=== PATIENT | female | born 1970 | race Caucasian/White ===

== ENCOUNTER 2017-10-09 11:27 | Day surgery (SDC) | payer OTHER ==
--- NOTE | 2017-10-08 16:51 | RAD REPORT ---
EXAM DESCRIPTION: RAD - Chest Pa And Lat (2 Views) - 10/08/2017 4:43 pm CLINICAL HISTORY: HTN. COMPARISON: None. FINDINGS: The lungs are clear. The heart is normal in size. No displaced fractures. IMPRESSION: No acute or concerning finding suspected.
[2017-10-08 17:21] LABS: Absolute Lymphocytes (CBC) 2.4 K/uL (0.7-4.9); Absolute Monocytes 0.9 K/uL (0.1-1.3); Absolute Neutrophil 7.5 K/uL (1.8-8.0); Basophils % 0.5 % (0-1.3); Eosinophils % 1.6 % (0-4.4); Hematocrit 41.6 % (36.0-45.0); Lymphocytes % 21.8 % (15.3-44.8); MCH 27.9 pg (27.0-35.0); MCV 84.6 fL (80-100); MPV 10.1 fL (7.6-11.3); Monocytes % 8.2 % (3.3-12.3); RBC Red Blood Cell Count 4.92 M/uL (3.86-4.86)
[2017-10-08 17:30] LABS: BUN Blood Urea Nitrogen 16 mg/dL (6-20); Bicarbonate 29 mEq/L (21-31); Glucose Level 90 mg/dL (65-120); Potassium 3.9 mEq/L (3.6-5.0); Sodium Level 139 mEq/L (135-145)
--- NOTE | 2017-10-08 22:50 | EKG ---
Test Date: 2017-10-08 Test Time: 16:32:34 Waist Pleater: GLADIS MEASUREMENT RESULTS: Intervals: Rate: 50 CO: 152 QRSD: 88 QT: 436 QTc: 397 [place]: P: -2 CO: 152 QRS: 1 T: 21 INTERPRETIVE STATEMENTS: Sinus bradycardia Otherwise normal ECG Compared to ECG 06/06/2008 03:43:26 Sinus rhythm no longer present Electronically Signed On 10-08-17 22:50:20 CDT by Otto Harley
[2017-10-09] MEDS ORDERED: Ringers Lactate 1,000 ML IV ONE (11:31)
[2017-10-09] MEDS ORDERED: PROPOFOL 200 MG/20 ML VIAL IV ONE (11:50)
[2017-10-09] MEDS ORDERED: MIDAZOLAM HCL 2 MG/2 ML INJ ONE (11:50)
[2017-10-09] MEDS ORDERED: FENTANYL CITR 100 MCG/2 ML ONE (11:50)
[2017-10-09] MEDS ORDERED: CEFAZOLIN/SWI 1gm 1 GM/10 ML SYR ONE (11:53)
[2017-10-09] MEDS ORDERED: KETOROLAC 30 MG/ML INJ ONE (12:30)
--- NOTE | 2017-10-09 12:37 | P.BOP ---
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
[2017-10-09] MEDS ORDERED: ONDANSETRON 4 MG/2 ML VIAL ONE (12:44)
[2017-10-09] MEDS ORDERED: CODEINE 30MG/APAP 300MG TAB ONE (14:28)
--- NOTE | 2017-10-10 00:04 | DS ---
Date of Discharge: 10/09/2017 Diagnoses: Right breast mass with cellulitis and abscess. Procedure: Right breast lumpectomy. Disposition: Home. Discharge Instructions: Wet-to-dry dressing. Normal saline daily and may take a showers with dressi ngs off. Follow up in my office in 1 week. Medications: Includes Cipro 500 mg p.o. q.12, normal saline daily and Tylenol No. 3 q.4 hours p.r.n. pain. ADALBERTO/LUIS Voice ID: [id number] Report ID: [id number]
--- NOTE | 2017-10-10 00:04 | OP ---
Date of Procedure: 10/09/2017 Surgeon: Marko Solo MD Director Of Institutional Sales: Yarelis Rush. Postoperative Diagnosis: Right breast mass with cellulitis and abscess. Postoperative Diagnosis: Right breast mass with cellulitis and abscess. Procedure: Right breast lumpectomy. Specimen: Mass with culture of the abscess. Findings: Mass with abscess. Anesthesia: General plus local. Indications: This is a case of a 46-year-old patient, with a recurrent mass in the right breast geraldine on with erythema, purulent discharge. This is on the inner side of her breast on the right side. Th is time, once again, it was getting worse with some redness of the skin too. She wants that mass rem nataliia. The benefits, alternatives, and risks of excisional biopsy of the mass fully explained to the patient, which include but are not limited to infection, bleeding, damage to adjacent structures, ane sthesia complication, GA, and even . She also understands this lumpectomy will serve as a biops y to rule out breast cancer. Cultures most likely will be sent. She understands the importance of a lso antibiotics. She understood, signed a consent. Description Of Procedure: The patient was brought to the operating room, placed in supine position. Anesthesia was done without complication. The right breast was prepped and draped in the sterile fa shion. A time-out was called. The mass was previously marked by me and the patient in the holding r oom. An incision was made. Immediately, we obtained some pus surrounding the area deep to the mass. This was cultured. After that, we proceeded to remove the lump, a new lumpectomy of the breast. T hat come with some breast tissue attached to it. Muscle does not seem to be involved. The area was irrigated. Hemostasis was obtained. Since this area was infected, we are going to let that to close by secondary intention. Local anesthetic was applied after irrigation and hemostasis. The patient tolerated the procedure well. The patient was sent to recovery room in stable condition. ADALBERTO/LUIS Voice ID: [id number] Report ID: [id number]
== END 2017-10-09 15:25 | disposition home or self-care (01) ==
LOC: OR 11:27
PROVIDERS: ATTEND Surgery
PROC: 0HBT0ZZ Excision of Right Breast, Open Approach (ICD-10-PCS; principal; 2017-10-09 12:30)
DX: N63.0 Unspecified lump in unspecified breast (principal); N61.1 Abscess of the breast and nipple; I10 Essential (primary) hypertension; K21.9 Gastro-esophageal reflux disease without esophagitis
CPT/HCPCS: 36415; 71046; 80048; 84703; 85025; 87070; 87075; 87077; 87186; 87205; 88304; 88305; 93005; J0690; J2250; J2405; J3010

== ENCOUNTER 2018-01-22 10:26 | Day surgery (SDC) | payer OTHER ==
[2018-01-16 11:47] LABS: Urine Appearance CLEAR; Urine Bilirubin NEGATIVE (NEG); Urine Blood NEGATIVE (NEG); Urine Color YELLOW; Urine Glucose NEGATIVE (NEG); Urine Protein NEGATIVE (NEG); Urine Urobilinogen 0.2 mg/dL (0.2-1.0)
[2018-01-16 11:49] LABS: Urine Microscopic Reflex ORDER UMIC
[2018-01-16 11:50] LABS: Absolute Lymphocytes (CBC) 2.2 K/uL (0.7-4.9); Absolute Monocytes 0.8 K/uL (0.1-1.3); Absolute Neutrophil 5.5 K/uL (1.8-8.0); Eosinophils % 1.4 % (0-4.4); Hematocrit 42.6 % (36.0-45.0); Lymphocytes % 25.5 % (15.3-44.8); MCH 28.7 pg (27.0-35.0); MCV 86.3 fL (80-100); MPV 10.5 fL (7.6-11.3); Monocytes % 8.9 % (3.3-12.3); RBC Red Blood Cell Count 4.94 M/uL (3.86-4.86)
[2018-01-16 11:57] LABS: Potassium 3.6 mmol/L (3.5-5.1)
[2018-01-16 12:05] LABS: Urine Bacteria <20 /HPF (<20); Urine Culture Reflex Order REFLEXED; Urine Mucus 1+ /HPF (NONE SEEN); Urine RBC <5 /HPF (NONE SEEN)
--- OUTSIDE RECORDS SUMMARY | 2018-01-22 10:28 | XMS REPORT | Summary of Care ---
:1970 Author Organization [facility] Outpatient Imaging [facility] Address [address] [place] [address]- Encounter HQ Kira_olayinka(FIN) [id number] Date(s): 01/10/16 - 01/10/16 [facility] Outpatient Imaging - [facility] [address] [place], [place] [phone] Discharge Disposition: Home or Self Care Attending Physician: Carla Wolf MD Vital Signs No data available for this section Problem List No data available for this section Allergies, Adverse Reactions, Alerts No data available for this section Medications No data available for this section Results No data available for this section Immunizations No data available for this section Procedures No data available for this section Social History No data available for this section Assessment and Plan No data available for this section
--- OUTSIDE RECORDS SUMMARY | 2018-01-22 10:28 | XMS REPORT | Continuity of Care Document ---
:1970 Author Organization Interface Problems Problem Status Onset Classification Date Comments Source Date Reported N63 - Active [facility] UNSPECIFIED [address] [place] LUMP IN BREAST Medications Medication Details Route Status Patient Ordering Order Source Instructions Provider Date Allergies, Adverse Reactions, Alerts Substance Category Reaction Severity Reaction Status Date Comments Source type Reported Immunizations Immunization Date Given Site Status Last Updated Comments Source Results Order Results Value Reference Date Interpretation Comments Source Name Range Breast Breast - BREAST MAMMO SCRN SAMMI INCL CAD MA 02/11 - [facility] Mammo Mammo /2016 - Francis Scrn SAMMI Scrn SAMMI BILATERAL DIGITAL SCREENING MAMMOGRAM WITH CAD: 02/11/2017 incl CAD incl CAD MA MA CLINICAL: /Screening Family history of breast cancer includes: Paternal aunt. Read by: Napoleon Jules MD Dictated Date/time: 02/12/17 08:24 Electronically Signed by: Napoleon Jules MD 02/12/17 08:24 FINAL REPORT Current study was evaluated with a Computer Aided Detection (CAD) system. Comparison is made to exam dated: 02/12/2016 mammogram - [facility]. There are scattered fibroglandular densities in both breasts. There are benign calcifications in both breasts. There also are benign scattered densities in both breasts. No significant masses, calcifications, or other findings are seen in either breast. There has been no significant interval change. IMPRESSION: BENIGN There is no mammographic evidence of malignancy. A 1 year screening mammogram is recommended. Napoleon Jules M.D. bf/penrad:02/12/2017 08:24:01 Cost Estimating Engineer: Samantha Rodriguez, [facility] This exam was dictated and interpreted by [id number] for [facility]. letter sent: Normal exam Mammogram BI-RADS: 2 Benign Digital Digital - DIGITAL MAMMO DX SAMMI MA 02/11 - [facility] Mammo DX Mammo DX /2015 - Francis Sammi MA Sammi MA BILATERAL DIGITAL DIAGNOSTIC MAMMOGRAM WITH CAD: 02/12/2016 CLINICAL: HISTORY: 45 yo female with history of palpable area of concern in the RIGHT breast which was evaluated with ultrasound on 01/09/16 showed only fatty lobules and a Shantanu's ligament prese Read by: Melanie Rodriguez MD nts for further imaging with mammography. Bilateral reduction mammoplasties, 1990. No prior breast biopsies. No family history of breast cancer. Dictated Date/time: 02/16/16 14:14 Electronically Signed by: Melanie Rodriguez MD 02/16/16 14:14 FINAL REPORT Current study was evaluated with a Computer Aided Detection (CAD) system. Comparison is made to exam dated: 01/09/2016 ultrasound - [facility]. There are scattered fibroglandular densities in both breasts. An asymmetry in the RIGHT breast, CC view effaced on additional views. No significant masses, calcifications, or other findings are seen in either breast. IMPRESSION: BENIGN 1. BILATERAL MAMMOGRAM READ IN CONJUNCTION WITH THE RIGHT BREAST ULTRASOUND OBTAINED ON 01/09/16 SHOWS NO DEFINITE MAMMOGRAPHIC EVIDENCE OF MALIGNANCY IN EITHER BREAST. 2. SPECIFICALLY, NO TRUE MASS IS IDENTIFIED AT THE PALPABLE AREA OF CONCERN , 2:00, RIGHT BREAST, 8 CM FN. RECOMMENDATION: 1. PROVIDING HER CLINICAL AND SELF-EXAMINATIONS REMAIN STABLE, A BILATERAL MAMMOGRAM IN ONE YEAR IS RECOMMENDED. 2. IF THE PALPABLE AREA CONTINUES TO BE A SOURCE OF CONCERN, SUGGEST SHE RETURN FOR FURTHER EVALUATION WITH AN MRI. The technologist discussed the findings and recommendations with the patient under my direction. Melanie Rodriguez M.D. sg/:02/16/2016 14:14:29 Cost Estimating Engineer: Mendy Shaw, [facility] This exam was dictated and interpreted by [id number] for [facility]. letter sent: Bilateral Benign Mammogram BI-RADS: 2 Benign Breast Breast AMENDMENT: 02/21/2016 Melanie Rodriguez M.D. 01/09 - [facility] The purpose of this addendum is to document that comparison has now been made to prior studies from [facility], 11/09/14. There has been no significant interval change in either breast. Read by: Bruce Parker MD Dictated Date/time: 02/21/16 16:03 Electronically Signed by: Bruce Parker MD 02/21/16 16:03 FINAL REPORT RECOMMENDATION: - - 1. PROVIDING HER CLINICAL AND SELF-EXAMINATIONS REMAIN STABLE, RECOMMEND A ROUTINE SCREENING MAMMOGRAM IN 01/2017. Read by: Bruce Parker MD Dictated Date/time: 01/10/16 16:59 Electronically Signed by: Bruce Parker MD 01/10/16 16:59 FINAL REPORT Amended BI-RADS: 2 Benign letter sent: Comp Normal - BREAST COMPLETE UNI US/R ULTRASOUND OF RIGHT BREAST: 01/09/2016 CLINICAL: N63 Unspecified Lump In Breast. No prior exams were available for comparison. Real-time ultrasound of the right breast was performed. The entire right breast was evaluated including all four quadrants subareolar region, axilla, and axillary tail. There are no abnormal-appearing lymph nodes in the right axilla. There is no complex cyst, suspicious mass, or abnormal echotexture. Directed imaging of the palpable area of concern pointed out by the patient at 2:00, 8 cm fn showed only fatty lobules and a Shantanu's ligament without evidence of a true mass. IMPRESSION: INCOMPLETE: NEEDS ADDITIONAL IMAGING EVALUATION - FOLLOW-UP RECOMMENDED There is no sonographic evidence of malignancy. DIRECTED IMAGING OF THE PALPABLE AREA OF CONCERN AT 2:00, RIGHT BREAST, 8 CM FM SHOWED NO EVIDENCE OF A TRUE MASS. HOWEVER, RECOMMEND FURTHER IMAGING EVALUATION WITH MAMMOGRAPHY (HER LAST MAMMOGRAM WAS 12/2014). RECOMMENDATION: 1. FURTHER IMAGING WITH BILATERAL MAMMOGRAPHY. PATIENT WILL CALL TO SCHEDULE AFTER PHYSICIAN ORDER OBTAINED. The finding and recommendation were discussed with the patient by technologist performing the exam under my direction at the end of the exam. Bruce Parker M.D. mt/:01/10/2016 16:59:09 Cost Estimating Engineer: Jackie CooleyS, [facility] This exam was dictated and interpreted by [id number] for [facility]. letter sent: Additional Imaging Ultrasound BI-RADS: 0 Indeterminate Vital Signs Vital Sign Value Date Comments Source Encounters Location Location Encounter Encounter Reason Attending ADM CA Status Source Details Type Number For Provider Date Date Visit [facility] Outpt Diag [id number] Carla 01/09 01/10 [facility] Outpt Diag [id number] 02/11 [facility] Outpt Diag [id number] 02/11 [facility] Procedures Procedure Code Date Perfomer Comments Source
--- OUTSIDE RECORDS SUMMARY | 2018-01-22 10:28 | XMS REPORT | Summary of Care ---
:1970 Author Organization [facility] Outpatient [facility] Address [address] [place] [address]- Encounter HQ Kira_olayinka(FIN) [id number] Date(s): 02/11/17 - 02/11/17 [facility] Outpatient Imaging - [facility] [address] [place], [place] [phone] Discharge Disposition: Home or Self Care Attending [...]
--- OUTSIDE RECORDS SUMMARY | 2018-01-22 10:28 | XMS REPORT | Summary of Care ---
:1970 Author Organization [facility] Outpatient Imaging [facility] Address [address] [place] [address]- Encounter HQ Kira_olayinka(FIN) [id number] Date(s): 02/12/16 - 02/12/16 [facility] Outpatient Imaging - [facility] [address] [place], [place] [address] [phone] Discharge Disposition: Home or Self Care Attending [...]
[2018-01-22] MEDS ORDERED: SCOPOLAMINE HYDROBROMIDE PATCH TD ONE (10:47)
[2018-01-22] MEDS ORDERED: Ringers Lactate 1,000 ML IV ONE ×2 (10:47→16:32)
[2018-01-22] MEDS: CEFAZOLIN/SWI 1gm 1 GM/10 ML SYR ONE ×2 (11:26→13:15)
[2018-01-22] MEDS ORDERED: FENTANYL CITR 250 MCG/5 ML ONE (12:34)
[2018-01-22] MEDS ORDERED: ROCURONIUM 50 MG/5 ML VIAL IV ONE (12:34)
[2018-01-22] MEDS ORDERED: MIDAZOLAM HCL 2 MG/2 ML INJ ONE (12:34)
[2018-01-22] MEDS ORDERED: PROPOFOL 200 MG/20 ML VIAL IV ONE (12:34)
[2018-01-22] MEDS ORDERED: ONDANSETRON HCL 40 MG/20 ML VIAL ONE (12:36)
[2018-01-22] MEDS ORDERED: LIDOCAINE 1% MPF 2 ML AMPULE ONE (12:36)
[2018-01-22] MEDS ORDERED: DEXAMETHASONE 4 MG/ML VIAL ONE (12:45)
[2018-01-22] MEDS: NA CHLORIDE 0.9% 1,000 ML ONE ×2 (13:08→13:15)
[2018-01-22] MEDS ORDERED: GLYCOPYRROLATE 0.2 MG/ML SYR ONE ×2 (13:46→15:38)
[2018-01-22] MEDS ORDERED: NEOSTIGMINE 1 MG/ML -5 ML SYRINGE ONE (15:38)
[2018-01-22] MEDS ORDERED: KETOROLAC 30 MG/ML INJ ONE (15:39)
[2018-01-22] MEDS: MEPERIDINE HCL 50 MG/ML AMP ONE ×4 (16:14→16:29)
[2018-01-22] MEDS ORDERED: HYDROCODONE/APAP 5/325 MG TAB ONE (18:15)
--- NOTE | 2018-01-22 18:56 | OP ---
Date of Procedure: 01/22/2018 Surgeon: Carla Wolf MD Community Development Manager: Najma Benson. Preoperative Diagnoses: Heavy menstrual bleeding (AUB-L), dysmenorrhea. Postoperative Diagnoses: Heavy menstrual bleeding (AUB-L), dysmenorrhea, menorrhagia, fibroids, endo metriosis. Procedures Performed: Total laparoscopic hysterectomy, bilateral salpingectomy, endometriosis excisi on, left ureterolysis. Estimated Blood Loss: Minimal. Specimens: Uterus, bilateral tubes, left lateral wall endometriosis, endometriosis of the posterior cul-de-sac, right lateral wall including the uterine specimen. Findings: Endometriosis was present in the right lateral wall, right uterosacral ligament, posterior serosa of the uterus, posterior vaginal wall in the cul-de-sac area. No other implants were seen in the anterior cul-de-sac or the anterior abdominal wall peritoneum. Liver, gallbladder appeared to b e unremarkable. Fibroids were large and multiple. The specimen removed intact through the vagina by manipulating it out without any morcellation. Complications: No complications. Drains: No drains. Condition: The patient is stable. Indications: The patient is a 47-year-old with heavy periods. She had a transvaginal ultrasound. S he was sampled on her endometrial lining, where there was no evidence of any atypia or malignancy. S he had an abnormal Pap smear, which was followed up by a colposcopy both with vulvar and cervical. T he vulvar biopsy was just suggestive of lichen sclerosus on the labia minora. The colposcopy of the cervix was negative. So, we discussed about all the different options for treatment for this patient including conservative management and surgery, given the fact that she has these large fibroids and heavy bleeding, just 47 years old. The patient was inclined to have definitive treatment with hyster ectomy. We discussed about preservation of ovaries, which was removal as to the age of 46, that it w ould be okay to remove the ovaries and consider hormone therapy. However, unless there was a serious indication for oophorectomy, she wanted to retain her ovaries, so she was consented and taken to the OR. Description Of Procedure: After informed consent was verified, the patient was taken back, 1 g of An cef was given. SCDs were placed on her calf. She was placed in supine position on the operating tab le and general anesthesia was given. She was then placed in dorsal lithotomy position using Vega st irrups. Arms were tucked by the side, and a time-out was done. The abdomen, vulva, vagina, and nelson neum were prepped and draped in a sterile fashion. Post was placed to drain the bladder and time recorder d to cysto tubing to an LR bag, emptied 300 for retrograde filling, and this was left to drain on the floor. A large VCare was introduced into the uterus and fixed in place. This area was then draped. A 1 cm infraumbilical incision was made with a scalpel using the open laparoscopy technique. Fascia was incised tagged. Peritoneum was entered bluntly and S retractors placed and Deirdre introduced. S ite of entry was checked and was unremarkable liver and gallbladder, upper abdominal, peritoneal surf aces as well as omentum were all unremarkable. The patient was placed in Trendelenburg and a 10 mm s uprapubic and 5 mm left lower quadrant ports were placed under direct vision without any problems. T he survey of the peritoneal and pelvic cavity, the abdominal and pelvic cavity showed endometriosis i n the posterior lateral wall, posterior cul-de-sac, mostly on the peritoneal lining of the posterior vaginal wall, bilateral uterosacral ligaments, posterior serosa of the uterus and right lateral wall. The endometriosis of the left lateral wall was the adherent to the periureteric tissue and so the u reter had to be dissected first in order for me to get the endometriosis out completely, anterior cul -de-sac free. The course of the ureter on the right unremarkable and unaltered. On the left, slight ly scarred and deviated medially. However, after the dissection was done, it was restored back to it s normal anatomy. The dissection was started by making an incision with scissors on the peritoneum l ateral and superior to the ureter. Incision was extended cephalad and caudad with the scissors. The n, dissection was performed to separate the ureter from the medial leaf of the broad ligament at the posterior peritoneum all the way to the level of crossing of the uterine artery. The entire ureter w as freed up from the medial leaf of the broad ligament. The entire peritoneum with endometriosis was resected and excised. This was handed for permanent pathology. Then, the dissection was carried me dially towards the uterosacral ligament where the endometriosis was present and the peritoneum was se parated here. Once the ureter was dissected laterally, there was no concern for ureteric injury and this dissection was continued to go through the peritoneum on the posterior wall of the uterus. Once this was all taken down, I went inferior dissecting the bowel away inferiorly, away from the posteri or vaginal wall, thereby removing the peritoneum that had endometriosis on it. Then went back to the top utero-ovarian ligament, mesosalpinx tube, broad and round ligament were all taken down. The ant erior peritoneum was opened up. Bladder flap was raised all the way to the right round ligament, the n we came back and skeletonize the vessels on the left broad ligament. Once the vessels were well ex posed and skeletonized, then went on to do the same dissection on opposite side. However, due to the fibroids present at the fundus anteriorly and toward the right broad ligament, dissection was slight ly harder on the right side. The utero-ovarian ligament, mesosalpinx tube, and round ligament were a ll taken down. Then, the 2 leaves of the broad ligament were opened up posteriorly, it was taken farhat n by dissecting medial to the ureter. All the endometriosis implants were also identified and dissec tion was performed such that the peritoneum was resected while performing the dissection to open up t he posterior peritoneum. This was connected to the posterior cul-de-sac peritoneal incision from the opposite side. Then, once the anterior peritoneum was also connected to the bladder flap, the monop olar was used to open up the vesicovaginal space and the bladder was dissected may be about a centime ter and half inferior to the vaginal cuff. It was slightly more adherent than expected likely becaus e of the inflammation from the endometriosis. However, a medial window was made with a monopolar rossana k blade to take down the vessels. Once this was done, bipolar basket tip was used to take down the v essels and then cauterized and cut with the LigaSure. Then cardinal ligaments were also taken down, cauterized and cut with the bipolar basket tip, and the LigaSure. On the opposite side, similar diss ection was performed taking down the vessels, taking down the anterior branch near the bladder, which could be the descending vaginal branch, then taking the uterine artery and vein, then the cardinal l igaments. The uterosacral ligament on the left side appeared to be slightly detached, but the suppor t on the opposite side was intact. After exposing the cuff completely, circumferential colpotomy was performed with a monopolar hook blade and the specimen was detached. Allis clamps were placed throu gh the vagina to hold the cervix and VCare and this were all removed, gently had to nudge the uterus and fibroids serially 1 after the other, so that they would fit through the vaginal cuff opening, and once this was done, a vaginal occluder and bulb were placed. Thorough irrigation and suction of the vaginal cuff were done, and there was excellent hemostasis at this point. No evidence of any electr ical, mechanical, or thermal injury to the ureters. The tubes were then removed with the help of the LigaSure on the right and then the left. The ovaries were left intact and had good vascular supply. Most of the endometriosis was removed. There was probably slightly some implants left on the right lateral wall posteriorly. They were pale and very tiny, so they were cauterized with the bipolar. After thorough irrigation and suction of the vaginal cuff, it was closed with the help of a 0 Vicryl on both angles and 3 [id number]-[id number] in the middle. Thorough irrigation and suction were done. The re was excellent hemostasis. No mechanical, thermal, electrical injury to the ureters. All the troc ars were removed under direct vision. The gas was desufflated and the Deirdre removed. Fascia was cl osed with a 0 Vicryl in a trgowb-cz-sdnwu fashion, and other gwnonr-un-lthaf 0 Vicryl stitch with the tag sutures. This closed the entire incision. Subcutaneous tissues were brought together with a simple 0 Vicryl stitch, and all skin incisions clos ed with the help of 4-0 Monocryl interrupted sutures. Instrument, needle, and sponge counts were cor rect at the end of the case. The patient tolerated the procedure well. She will follow up with me kyle carballo 1 week. Ebl: Less than 100. SK/MODL Voice ID: [id number] Report ID: [id number]
[2018-01-22] MEDS ORDERED: IBUPROFEN 200 MG TAB PO ONE (19:22)
== END 2018-01-22 19:45 | disposition home or self-care (01) ==
LOC: OR 10:26
PROVIDERS: ATTEND Obstetrics & Gynecology
PROC: 0UT74ZZ Resection of Bilateral Fallopian Tubes, Percutaneous Endoscopic Approach (ICD-10-PCS; 2018-01-22)
PROC: 0UBF4ZZ Excision of Cul-de-sac, Percutaneous Endoscopic Approach (ICD-10-PCS; 2018-01-22)
PROC: 0UB44ZZ Excision of Uterine Supporting Structure, Percutaneous Endoscopic Approach (ICD-10-PCS; 2018-01-22)
PROC: 0TN74ZZ Release Left Ureter, Percutaneous Endoscopic Approach (ICD-10-PCS; 2018-01-22)
PROC: 0UT94ZZ Resection of Uterus, Percutaneous Endoscopic Approach (ICD-10-PCS; principal; 2018-01-22 12:00)
DX: N92.1 Excessive and frequent menstruation with irregular cycle (principal); D25.9 Leiomyoma of uterus, unspecified; N94.6 Dysmenorrhea, unspecified; N80.3 Endometriosis of pelvic peritoneum; N80.8 Other endometriosis; I10 Essential (primary) hypertension; K21.9 Gastro-esophageal reflux disease without esophagitis; Z90.49 Acquired absence of other specified parts of digestive tract
CPT/HCPCS: 36415; 80048; 81003; 81015; 81025; 85025; 86850; 86900; 86901; 87086; 87088; 88305; 88307; J0690; J2001; J2175; J2250; J2405; J2710; J7030